=== PATIENT | female | born 2000 | race Caucasian/White ===

== ENCOUNTER 2020-11-28 12:37 | Emergency (ER) | payer OTHER, MEDICAID ==
[~2020-11-28] VITALS: Ht 157.5 cm; Wt 50.0 kg
[2020-11-28] MEDS ORDERED: ketorolac tromethamine 15mg/ml inj. IM ONE (14:40)
[2020-11-28] MEDS ORDERED: CYCL-1 PO (16:05)
[2020-11-28 16:27] VITALS: BP 109/76
== END 2020-11-28 16:30 | disposition home or self-care (01) ==
LOC: ER 12:38
DX: S13.4XXA Sprain of ligaments of cervical spine, initial encounter (principal); S40.011A Contusion of right shoulder, initial encounter; M25.562 Pain in left knee; R51.9 Headache, unspecified; Z79.899 Other long term (current) drug therapy; V87.7XXA Person injured in collision between other specified motor vehicles (traffic), initial encounter; Y93.89 Activity, other specified; Y92.488 Other paved roadways as the place of occurrence of the external cause; Y99.8 Other external cause status
CPT/HCPCS: 73030; 73564; 96372; 99284; J1885